=== PATIENT | female | born 1985 | race Caucasian/White ===

== ENCOUNTER 2018-01-02 22:13 | Outpatient (CLI) | END 2018-01-02 22:14 | disposition home or self-care (01) | LOC: NONPT 22:13 | PROVIDERS: ATTEND Nurse Practitioner Family | DX: R05 Cough (principal) | CPT/HCPCS: 87502; 87651 ==

== ENCOUNTER 2018-12-22 10:40 | Outpatient (CLI) | END 2018-12-22 10:41 | disposition home or self-care (01) | LOC: RHC-LAB 10:40 | PROVIDERS: ATTEND Nurse Practitioner Family | DX: R05 Cough (principal) | CPT/HCPCS: 87502; 87651 ==